=== PATIENT | male | born 1970 | race Caucasian/White ===

== ENCOUNTER 2016-09-13 09:44 | Emergency (ER) | payer OTHER ==
[2016-09-13] MEDS ORDERED: SODIUM CHLORIDE 0.9% 1,000 ML ONE (12:13)
== END 2016-09-13 14:47 | disposition home or self-care (01) ==
LOC: ER 09:44
CPT/HCPCS: 36415; 80053; 82553; 84484; 84550; 85025; 85610; 85730; 93005; 96360; 96361